=== PATIENT | male | born 1990 | race Caucasian/White ===

== ENCOUNTER 2020-03-28 00:11 | Emergency (ER) | payer MEDICAID, SELFPAY ==
[2020-03-28 00:11] VITALS: BP 111/68; PULSE 152; RESP 18; TEMP 36.6; O2SAT 96; BMI 34.0
[2020-03-28] MEDS: 0.9% Normal Saline 1,000 ML 999 ML IV (00:12)
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
--- NOTE | 2020-03-28 00:17 | ED.RN ---
PATIENT YELLING AND SCREAMING, MAKING SUICIDAL COMMENTS, STATING THAT HE IS GOD AND EVERYTHING IS GOING TO BURN PATIENT IS THRASHING AND UNABLE TO MAINTAIN SAFETY. DECISION TO INTUBATE MADE.
--- NOTE | 2020-03-28 00:19 | ED.RN ---
[facility] AT BEDS[facility]
[2020-03-28 00:22] LABS: Absolute Lymphocyte Count 2.72 X10^3/uL (0.83-4.51); Basophil# 0.17 X10^3/uL; Basophil% 0.5 % (0-1); Eosinophils% 0.3 % (0-5); Hematocrit 45.5 % (40-54); Hemoglobin 15.9 g/dL (13.0-16.5); Lymphocyte # 2.72 X10^3/ul (4.0); Lymphocyte % 8.3 % (19-41); Mean Corp Hgb Conc 34.9 g/dL (32-36); Mean Corpuscular Hgb 31.5 pg (27.0-32.0); Mean Corpuscular Volume 90.3 fL (80-94); Mean Platelet Vol. 8.9 fl (6.2-12.0); Monocyte# 1.71 X10^3/uL; Monocyte% 5.2 % (0-10); NRBC Flagged by Analyzer 0 % (0-5); Neutrophil # 27.04 X10^3/uL (2.7-7.7); POSITIVE COUNT YES; POSITIVE DIFFERENTIAL YES; Platelet Count 435 K/mm3 (150-450); RBC Distribution Width CV 11.9 % (11.6-14.6); RBC Distribution Width SD 38.7 fl (35.1-43.9); Red Blood Count 5.04 M/mm3 (4.6-6.2)
[2020-03-28] MEDS: Etomidate 20 MG/10 ML Vial IV (00:24)
[2020-03-28] MEDS: Rocuronium Bromide 50 MG/5 ML Vial 40 MG IV (00:25)
[2020-03-28 00:29] VITALS: BP 105/76; PULSE 147; RESP 16; O2SAT 100
[2020-03-28 00:31] LABS: Mucous, Urine 0 SEEN /hpf (<or=2+); Squamous Epithelial Cells - UA 0 SEEN /hpf (0-5)
[2020-03-28 00:33] LABS: Differential Indicated SCAN CRITERIA MET
[2020-03-28 00:34] LABS: Color, Urine Yellow (Yellow); Glucose, Dipstick Normal (Normal); Ketone-Dipstick 5 mg/dl (Negative); Leukocyte Esterase-Dipstick 25 /ul (Negative); Nitrite-Dipstick Negative (Negative); Occult Blood-Urine 250 /ul (Negative); Protein-Dipstick 30 mg/dl (Negative); Urine Bilirubin Dipstick Negative (Negative); Urine Clarity Sl. Cloudy (Clear); Urine Urobilinogen 1 mg/dl (Normal)
[2020-03-28 00:35] LABS: International Normalized Ratio 1.1; Prothrombin Time (Protime)PT. 13.9 SECONDS (11.7-14.9)
[2020-03-28 00:39] VITALS: BP 159/87; PULSE 142; RESP 14; O2SAT 100
[2020-03-28 00:40] LABS: AST(SGOT) 67 U/L (15-37); Alanine Aminotransfer ALT/SGPT 52 U/L (16-61); Albumin, Serum 4.1 g/dL (3.2-5.0); Alkaline Phosphatase 141 U/L (45-117); Anion Gap 8 (5-15); BUN 11 mg/dL (7-18); BUN/Creat Ratio 7.3 RATIO (10-20); Bilirubin, Direct 0.15 mg/dL (0.00-0.30); Calcium,Total 9.3 mg/dL (8.5-10.1); Chloride 105 mmol/L (98-107); Creatinine, Serum 1.51 mg/dL (0.70-1.30); EST Glomerular Filtration Rate 58 mL/min (>60); Est Glom Filt Rate - Afr Amer 70 mL/min (>60); Estimated Creatinine Clearance 78.51 ml/min; Glucose 134 mg/dL (74-106); Potassium 3.6 mmol/L (3.5-5.1); Protein, Total 8.1 g/dL (6.4-8.2); Sodium Level 138 mmol/L (136-145)
[2020-03-28 00:41] LABS: Red Blood Cells-Urine 50-100 SEEN /hpf (0-5)
--- NOTE | 2020-03-28 00:42 | ED.RN ---
YUMIKO ANDERS WITH [facility] GIVEN REPORT, DENIES QUESTIONS.
[2020-03-28 00:43] LABS: White Blood Cells 5-10 SEEN /hpf (0-5)
[2020-03-28 00:48] LABS: Hyaline Cast 0-5 SEEN /lpf (0-5); Transitional Epithelial - Ur 0-5 SEEN /hpf (0-5)
[2020-03-28 00:49] LABS: Bacteria 2+ /hpf (None Seen)
[2020-03-28 00:50] LABS: Differential Comment SCANNED
[2020-03-28 00:57] LABS: Amphetamine Urine VISTA POSITIVE (<1000 ng/mL); Barbiturate Urine VISTA NEGATIVE (< 200 ng/mL); Benzodiazepine Urine VISTA NEGATIVE (< 200 ng/mL); Cocaine Urine VISTA NEGATIVE (< 300 ng/mL); Ecstacy Urine VISTA POSITIVE (< 500 ng/mL); Methadone Urine VISTA NEGATIVE (< 300 ng/mL); PCP Urine VISTA NEGATIVE (< 25 ng/mL); THC Urine VISTA POSITIVE (< 50 ng/mL); Vista UDS pH Range 5
[2020-03-28 12:18] LABS: Pathologist Review Reviewed
[2020-03-28 20:15] LABS: Bedside Glucose 124 mg/dL (70-110)
== END 2020-03-28 00:52 | disposition short-term general hospital (02) ==
PROVIDERS: Emergency Provider Student in an Organized Health Care Education/Training Program
DX: S81.012A Laceration without foreign body, left knee, initial encounter (principal); T14.91XA Suicide attempt, initial encounter; F15.10 Other stimulant abuse, uncomplicated; F12.10 Cannabis abuse, uncomplicated; D72.829 Elevated white blood cell count, unspecified; V47.7XXA Person on outside of car injured in collision with fixed or stationary object in traffic accident, initial encounter; X83.8XXA Intentional self-harm by other specified means, initial encounter; Y93.89 Activity, other specified; Y92.410 Unspecified street and highway as the place of occurrence of the external cause; Y99.9 Unspecified external cause status; Z87.891 Personal history of nicotine dependence
CPT/HCPCS: 31500; 51702; 80048; 80076; 80307; 80320; 81001; 82962; 85025; 85610; 99251; 99285; J7030; A4216; G0463; G0480

== ENCOUNTER 2020-06-12 08:53 | Emergency (ER) | payer MEDICAID, SELFPAY ==
[2020-05-07 05:42] VITALS: BMI 29.9
[2020-06-12] VITALS (8 sets, daily range): BP systolic 112–153; BP diastolic 71–86; PULSE 68–118; RESP 16–20; TEMP 36.1–36.4; O2SAT 97–100; BMI 28.2
--- NOTE | 2020-06-12 09:13 | EKG12_ITS ---
Test Reason : MENTAL HEALTH Blood Pressure : / mmHG Vent. Rate : 136 BPM Atrial Rate : 136 BPM P-R Int : 116 ms QRS Dur : 074 ms QT Int : 296 ms P-R-T Axes : 056 005 055 degrees QTc Int : 445 ms Sinus tachycardia Otherwise normal ECG Confirmed by DONNA PIERCE, HUE ([id number]), editorial assistant EMELI ANGEL ([id number]) on 06/15/2020 8:53:23 A M Referred By: JASIEL Confirmed By:RAFAELA THOMPSON MD
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
[2020-06-12 09:46] LABS: Absolute Lymphocyte Count 1.99 X10^3/uL (0.83-4.51); Absolute Neutrophil Count 7.6 X10^3/uL (2.0-7.7); Basophil# 0.03 X10^3/uL; Basophil% 0.3 % (0-1); Eosinophil# 0.13 X10^3/uL; Eosinophils% 1.2 % (0-5); Hemoglobin 14.4 g/dL (13.0-16.5); Lymphocyte # 1.99 X10^3/ul (4.0); Lymphocyte % 18.8 % (19-41); Mean Corp Hgb Conc 32.7 g/dL (32-36); Mean Corpuscular Hgb 29.7 pg (27.0-32.0); Mean Corpuscular Volume 90.7 fL (80-94); Mean Platelet Vol. 8.6 fl (6.2-12.0); Monocyte# 0.78 X10^3/uL; Monocyte% 7.4 % (0-10); NRBC Flagged by Analyzer 0 % (0-5); Neutrophil # 7.64 X10^3/uL (2.7-7.7); Neutrophil % 71.9 % (47-70); Platelet Count 389 K/mm3 (150-450); RBC Distribution Width SD 46.7 fl (35.1-43.9); Red Blood Count 4.85 M/mm3 (4.6-6.2); White Blood Count 10.6 K/mm3 (4.4-11.0)
[2020-06-12 10:09] LABS: AST(SGOT) 8 U/L (15-37); Alanine Aminotransfer ALT/SGPT 19 U/L (16-61); Alkaline Phosphatase 199 U/L (45-117); Anion Gap 5 (5-15); BUN 18 mg/dL (7-18); BUN/Creat Ratio 14.4 RATIO (10-20); Calcium,Total 8.9 mg/dL (8.5-10.1); Chloride 109 mmol/L (98-107); Creatinine, Serum 1.25 mg/dL (0.70-1.30); EST Glomerular Filtration Rate 72 mL/min (>60); Est Glom Filt Rate - Afr Amer 87 mL/min (>60); Estimated Creatinine Clearance 97.66 ml/min; Globulin 3.9 g/dL (2.2-4.2); Glucose 78 mg/dL (74-106); Potassium 3.3 mmol/L (3.5-5.1); Protein, Total 7.9 g/dL (6.4-8.2); Sodium Level 141 mmol/L (136-145); Thyroid Stim Hormone (TSH) 0.41 uIU/mL (0.358-3.74)
[2020-06-12 10:17] LABS: Alcohol, Blood (Medical)-Serum < 3.0 mg/dL
--- NOTE | 2020-06-12 11:18 | ED.RN ---
This RN again asked pt for urine specimen and pt states he will need something more to drink. 2 cups of water provided but pt not willing to drink at this time. States just leave it'.
--- NOTE | 2020-06-12 11:32 | ED.RN ---
HRO asked to assist with pt as pt refusing to attempt urine sample. HRO talking with pt currently
[2020-06-12 13:09] LABS: Amphetamine Urine VISTA POSITIVE (<1000 ng/mL); Barbiturate Urine VISTA NEGATIVE (< 200 ng/mL); Benzodiazepine Urine VISTA NEGATIVE (< 200 ng/mL); Cocaine Urine VISTA NEGATIVE (< 300 ng/mL); Ecstacy Urine VISTA POSITIVE (< 500 ng/mL); Methadone Urine VISTA NEGATIVE (< 300 ng/mL); PCP Urine VISTA NEGATIVE (< 25 ng/mL); THC Urine VISTA POSITIVE (< 50 ng/mL); Vista UDS pH Range 5
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
[2020-06-12] MEDS: Ziprasidone IM 20 MG/ML VIAL IM (14:02)
[2020-06-12 14:32] LABS: Bilirubin, Direct 0.13 mg/dL (0.00-0.30)
[2020-06-12 14:34] LABS: CPK Total, Creatine Kinase 95 U/L (39-308)
--- NOTE | 2020-06-12 15:24 | CM.ED ---
SOCIAL WORK Referral called and faxed to [facility]. Pending review at this time Jamar Salas, FANCY SEWER, HELMET BINDER
--- NOTE | 2020-06-12 15:54 | CM.ED ---
SOCIAL WORK Call from [facility]. Patient accepted by Dr. Wong to the Dual Diagnosis Unit. Patient out of restraints at 1530. Patient unable to leave ER until out of restraints for 4 hours-1930. Signal Person to set up transport once patient out of restraints for 4 hours. Nurse to call report to option 1. D. RODOLFO Salas, MASTER AUTOMOTIVE TECHNICIAN
--- NOTE | 2020-06-12 19:32 | CM.ED ---
Addendum entered by Ronit Salas 06/12/20 19:41: Patient's mother updated on discharge to [facility]. Original Note: SOCIAL WORK Call to [facility] to update patient has not required restraints. [place] has set up transport. Nurse to call report. Jamar Salas, CROP CONSULTANT, SHIP'S OFFICER
== END 2020-06-12 20:10 | disposition short-term general hospital (02) ==
PROVIDERS: Emergency Provider Emergency Medicine
DX: F29 Unspecified psychosis not due to a substance or known physiological condition (principal); F19.10 Other psychoactive substance abuse, uncomplicated; F17.200 Nicotine dependence, unspecified, uncomplicated
CPT/HCPCS: 80053; 80307; 80320; 82248; 82550; 84443; 85025; 87426; 93005; 99284; P9612; G0480; J3486

== ENCOUNTER → 2020-07-18 10:27 | Outpatient (CLI) | payer MEDICAID, SELFPAY ==
[2020-06-12 08:55] VITALS: BMI 28.2
--- NOTE | 2020-07-18 10:38 | MRI_ITS ---
STUDY: MRI BRAIN WITHOUT CONTRAST REASON FOR EXAM: Male, 29 years old. Traumatic brain injury, headaches, memory loss TECHNIQUE: Standardized multiplanar fat and water weighted pulse sequences were obtained. COMPARISON: CT head without contrast 04/21/2016. FINDINGS: No diffusion restriction throughout the brain parenchyma. No focal signal abnormalities throughout the brain parenchyma in all of the pulse sequences. The gradient echo sequence did not show any abnormal magnetic susceptibility foci throughout the brain parenchyma. Normal size of the ventricles and extra-axial spaces for the patient''s age. Normal white matter tracts of the supratentorial brain. Normal bilateral basal ganglia. Normal thalami. There is no extra-axial fluid accumulation. Normal flow voids within the major intracranial circulation suggesting patency by spin echo criteria. Normal sella turcica, pituitary gland, infundibular stalk, optic chiasm and hypothalamus. Normal tectal plate and pineal gland. Normal midbrain, aydee and medulla. Normal cerebellum. Normal basal cisterns. Normal bilateral temporal bones. Normal bilateral internal auditory canals. No demonstrated orbital abnormality, within the constraints of a routine brain study. Normal visualized paranasal sinuses. Normal calvarium and skull base. Normal visualized soft tissue structures. Normal visualized upper cervical spine. MRI/Brain without Contrast IMPRESSION: Normal unenhanced MRI of the brain. Electronically Signed: Rasta Amador MD at 15:29 EST , Service support ,
== END ==
PROVIDERS: PCP Nurse Practitioner Family; Referring Provider Psychiatry & Neurology Neurology; Visit Provider Psychiatry & Neurology Neurology
DX: R41.3 Other amnesia (principal); S09.90XA Unspecified injury of head, initial encounter
CPT/HCPCS: 70551

== ENCOUNTER → 2020-09-17 13:30 | Outpatient (CLI) | payer MEDICAID, SELFPAY ==
[2020-06-12 08:55] VITALS: BMI 28.2
[2020-09-17 15:26] LABS: Absolute Lymphocyte Count 2.48 X10^3/uL (0.83-4.51); Absolute Neutrophil Count 3.5 X10^3/uL (2.0-7.7); Basophil# 0.02 X10^3/uL; Basophil% 0.3 % (0-1); Eosinophil# 0.12 X10^3/uL; Eosinophils% 1.8 % (0-5); Hematocrit 44.3 % (40-54); Hemoglobin 14.7 g/dL (13.0-16.5); Lymphocyte # 2.48 X10^3/ul (4.0); Lymphocyte % 37.7 % (19-41); Mean Corp Hgb Conc 33.2 g/dL (32-36); Mean Corpuscular Hgb 30.7 pg (27.0-32.0); Mean Corpuscular Volume 92.5 fL (80-94); Mean Platelet Vol. 8.7 fl (6.2-12.0); Monocyte# 0.37 X10^3/uL; Monocyte% 5.6 % (0-10); NRBC Flagged by Analyzer 0 % (0-5); Neutrophil # 3.54 X10^3/uL (2.7-7.7); Platelet Count 298 K/mm3 (150-450); RBC Distribution Width CV 12.4 % (11.6-14.6); RBC Distribution Width SD 42.2 fl (35.1-43.9); Red Blood Count 4.79 M/mm3 (4.6-6.2); White Blood Count 6.6 K/mm3 (4.4-11.0)
[2020-09-17 15:28] LABS: Vitamin B12 637 pg/mL (211-911)
[2020-09-17 15:40] LABS: ALB/GLOB Ratio 1.1 RATIO (0.9-2.4); AST(SGOT) 15 U/L (15-37); Alanine Aminotransfer ALT/SGPT 27 U/L (16-61); Albumin, Serum 3.8 g/dL (3.2-5.0); Alkaline Phosphatase 116 U/L (45-117); Anion Gap 6 (5-15); BUN 16 mg/dL (7-18); BUN/Creat Ratio 16.9 RATIO (10-20); Calcium,Total 8.7 mg/dL (8.5-10.1); Chloride 103 mmol/L (98-107); Cholesterol 153 mg/dL (200); Creatinine, Serum 0.95 mg/dL (0.70-1.30); EST Glomerular Filtration Rate 99 mL/min (>60); Est Glom Filt Rate - Afr Amer 119 mL/min (>60); Globulin 3.5 g/dL (2.2-4.2); Glucose 107 mg/dL (74-106); High Density Lipoprotein 52 mg/dL; Potassium 3.3 mmol/L (3.5-5.1); Protein, Total 7.3 g/dL (6.4-8.2); Sodium Level 137 mmol/L (136-145); Thyroid Stim Hormone (TSH) 0.94 uIU/mL (0.358-3.74); Triglycerides 75 mg/dL; Very Low Density Lipoprotein 15 mg/dL (5-40)
== END ==
PROVIDERS: PCP Family Medicine; Referring Provider Family Medicine; Visit Provider Family Medicine
DX: R41.3 Other amnesia (principal); E66.9 Obesity, unspecified
CPT/HCPCS: 36415; 80053; 80061; 82607; 84443; 85025

== ENCOUNTER 2023-11-10 21:06 | Emergency (ER) | payer MEDICARE, SELFPAY ==
[2023-11-10 21:07] VITALS: BP 143/96; PULSE 132; RESP 18; TEMP 36.9; O2SAT 98; BMI 35.6
--- NOTE | 2023-11-10 22:02 | EDS_ITS ---
HPI HPI - Psych History of Present Illness Chief Complaint: Mental Health Informant: patient Onset/Context/Timing Onset: Weeks (2) Context: Gradual Onset Timing: Continuous Worsened by: - (Nothing) Relieved by: Nothing Associated Symptoms Associated Symptoms - Psych: Positive for Depressed, Suicidal Thoughts, Paranoia, Visual Hallucinations and Auditory Hallucinations Specific plan (suicidal thought): Patient denies any specific plan. Narrative Narrative: Patient presents with depression that has been getting worse over the past 2 weeks. Patient states he has had thoughts of suicide but denies any specific plan. Patient states that he does not feel anything can make him happy anymore. Patient also admits to some visual and auditory hallucinations. Patient states the voices are criticizing everything he does. Patient states his visual hallucinations is just bizarre stuff. Patient denies seeing other people. Patient also admits to some paranoid ideations where he thinks people are out to get him. [facility] Medical History Alcohol abuse Allergies Bone fracture Carpal tunnel syndrome Drug abuse Emotional problems Foreign body in right ear GERD (gastroesophageal reflux disease) Headache Hearing problem Leg fracture Right otitis externa Right otitis media Smoker Viral myocarditis Home Medications NK 11/09/23 [History Last Taken Unknown] trazodone 50 mg tablet 50 mg PO QHS #30 tabs 11/09/23 [Rx Last Taken Unknown] Allergy/AdvReac Type Severity Reaction Status Date / Time No Known Allergies Allergy Verified 11/10/23 21:11 Family History (Updated 10/28/23 @ 17:28 by Shellie Dixon) Other CVA (cerebral vascular accident) Dementia Heart disease Surgical History H/O shoulder surgery Hx of pelvic surgery Social History Smoking Status: Heavy Smoker (>10/day) alcohol intake: never substance use type: former substance user and marijuana what type of physical activity do you participate in: walking ROS ROS ED Constitutional Constitutional ED: Denies chills or fever(s) Eyes Eyes: Denies blurry vision or change in vision ENT ENT ED: Denies rhinorrhea or sore throat Cardiovascular Cardiovascular: Denies chest pain or palpitations Respiratory/Chest Respiratory/Chest: Denies cough or dyspnea Gastrointestinal Gastrointestinal: Denies nausea or vomiting Genitourinary Genitourinary ED: Denies dysuria or hematuria Musculoskeletal Musculoskeletal: Reports back pain; Denies neck pain Integumentary Denies abscess or rash Neurologic Neurologic: Reports headache(s); Denies weakness Psychiatric Psychiatric: Reports depression, suicidal ideation and suicidal thoughts Allergic/Immunologic Allergic/Immunologic ED: Denies mouth swelling or urticaria EXAM Physical Exam Const Vital Signs: 11/10/23 21:07 Temperature 98.4 F Temperature Source Temporal Pulse Rate 132 H Respiratory Rate 18 Blood Pressure 143/96 H Blood Pressure Mean 111 Pulse Ox 98 Oxygen Delivery Method Room Air Positive well nourished, well developed and obese General Appearance ED: well developed and NAD Nutritional Appearance: obese HEENT Reports moist mucous membranes normocephalic and atraumatic Neck supple and no JVD Resp normal respiratory effort and clear to auscultation bilaterally Cardio Rate: regular rate Rhythm: regular rhythm GI non-tender and non-distended Palpation: soft Extremity normal to inspection Neuro oriented x3, CN's II-XII intact bilaterally and no sensory deficits noted Esme Coma Scale: document GCS findings Spontaneous Obeys Commands Oriented 15 Sensorium / Orientation: alert Motor Exam: strength 5/5 throughout Psych Appearance: grossly normal Attitude: calm Speech: normal speech Mood & Affect: depressed, sad and flat affect Thought Content: suicidality, No homicidality and hallucination(s) Positive for auditory and visual MDM MDM MDM Narrative Medical decision making narrative: Medical screening labs will be obtained. CBC will be obtained to assess for leukocytosis and anemia. Basic metabolic profile will be obtained to assess for electrolyte abnormality and renal function. Serum alcohol level will be obtained to assess for alcohol intoxication. Urine tox screen will be obtained to assess for substance abuse. Suicide precautions will be maintained. Care of the patient be turned over the oncoming physician pending medical clearance labs and crisis evaluation. Discharge Plan Triage Chief Complaint: Mental Health ED Provider: Anthony Yeh Dx/Rx/DC Orders Prescriptions: No Action NK trazodone 50 mg tablet 50 mg PO QHS Qty: 30 1RF Primary Care Provider: Care Physician,No Primary Referrals: Gerald Chambers MD [Non-Staff] -
[2023-11-10 22:39] LABS: Absolute Lymphocyte Count 3.68 X10^3/uL (0.83-4.51); Basophil# 0.05 X10^3/uL; Basophil% 0.4 % (0-1); Eosinophil# 0.29 X10^3/uL; Eosinophils% 2.2 % (0-5); Hematocrit 39.7 % (40-54); Hemoglobin 13.5 g/dL (13.0-16.5); Lymphocyte # 3.68 X10^3/ul (0.83-4.51); Lymphocyte % 27.9 % (19-41); Mean Corpuscular Hgb 30.3 pg (27.0-32.0); Mean Platelet Vol. 8.5 fl (6.2-12.0); Monocyte# 1.08 X10^3/uL; Monocyte% 8.2 % (0-10); NRBC Flagged by Analyzer 0 % (0-5); Neutrophil # 8.02 X10^3/uL (2.7-7.7); Neutrophil % 60.8 % (47-70); Platelet Count 363 K/mm3 (150-450); RBC Distribution Width CV 13.1 % (11.6-14.6); Red Blood Count 4.46 M/mm3 (4.6-6.2); White Blood Count 13.2 K/mm3 (4.4-11.0)
[2023-11-10 22:55] LABS: Anion Gap 5 (5-15); BUN 13 mg/dL (7-18); BUN/Creat Ratio 13.9 RATIO (10-20); Calcium,Total 8.4 mg/dL (8.5-10.1); Chloride 109 mmol/L (98-107); Creatinine, Serum 0.93 mg/dL (0.70-1.30); EST Glomerular Filtration Rate 99 mL/min (>60); Est Glom Filt Rate - Afr Amer 119 mL/min (>60); Estimated Creatinine Clearance 145.05 ml/min; Glucose 130 mg/dL (74-106); Potassium 3.9 mmol/L (3.5-5.1); Sodium Level 139 mmol/L (136-145)
[2023-11-11 00:36] VITALS: BP 124/80; PULSE 82; RESP 16; O2SAT 98
[2023-11-11 01:15] LABS: Amphetamine Urine VISTA POSITIVE (<1000 ng/mL); Barbiturate Urine VISTA NEGATIVE (< 200 ng/mL); Benzodiazepine Urine VISTA NEGATIVE (< 200 ng/mL); Cocaine Urine VISTA NEGATIVE (< 300 ng/mL); Ecstacy Urine VISTA NEGATIVE (< 500 ng/mL); Methadone Urine VISTA NEGATIVE (< 300 ng/mL); PCP Urine VISTA NEGATIVE (< 25 ng/mL); THC Urine VISTA POSITIVE (< 50 ng/mL); Vista UDS pH Range 5
[2023-11-11 02:25] VITALS: BP 135/87; PULSE 84; RESP 16; TEMP 35.7; O2SAT 97
== END 2023-11-11 02:27 | disposition home or self-care (01) ==
PROVIDERS: Emergency Provider Emergency Medicine; Visit Provider Emergency Medicine
DX: F32.A Depression, unspecified (principal); R45.851 Suicidal ideations; F17.200 Nicotine dependence, unspecified, uncomplicated
CPT/HCPCS: 80048; 80307; 80320; 85025; 99284; G0480

== ENCOUNTER 2024-01-14 03:07 | Emergency (ER) | payer MEDICARE, MEDICAID, SELFPAY ==
[2024-01-14 03:07] VITALS: BP 155/92; PULSE 99; RESP 18; TEMP 36.9; O2SAT 100
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
== END 2024-01-14 06:28 | disposition home or self-care (01) ==
PROVIDERS: Emergency Provider Emergency Medicine; PCP Family Medicine; Visit Provider Emergency Medicine
DX: F41.9 Anxiety disorder, unspecified (principal); F31.9 Bipolar disorder, unspecified; F17.200 Nicotine dependence, unspecified, uncomplicated; Z79.899 Other long term (current) drug therapy
CPT/HCPCS: 99282

== ENCOUNTER 2024-02-03 13:06 | Emergency (ER) | payer MEDICARE, MEDICAID, SELFPAY ==
[2024-02-03 13:07] VITALS: BP 136/101; PULSE 98; RESP 17; TEMP 36.4; O2SAT 99; BMI 31.6
--- NOTE | 2024-02-03 13:20 | EX.ED.DYSGE1 ---
HPI History of Present Illness Chief Complaint: General Illness Narrative Narrative: 33-year-old male past medical history of depression and anxiety, states he was recently incarcerated and released. He does have an appointment with his psychiatrist until 18 February, approximately 16 days from now. He presents for refill of his Vistaril. Of note, he was seen earlier in the month, and given prescription refills for his trazodone for a month and for 20 Vistaril tablets. While he states that he has a few more left, he does not want to be without any as he has 2 more weeks left. He only wants a prescription for Vistaril. He denies any suicidal ideation, homicidal ideation, or hallucinations. He has not necessarily needed the Vistaril more frequently over the last few days. PFSH PFSH Medical History Leg fracture Viral myocarditis GERD (gastroesophageal reflux disease) Hearing problem Headache Emotional problems Drug abuse Carpal tunnel syndrome Bone fracture Allergies Alcohol abuse Right otitis media Right otitis externa Foreign body in right ear Smoker Home Medications ?Medication ?Instructions ?Recorded ?Last Taken ?Type hydroxyzine pamoate 25 mg capsule 25 mg PO TID PRN anxiety #20 caps 01/14/24 Unknown Rx (Vistaril) trazodone 50 mg tablet 50 mg PO QHS #30 tabs 01/14/24 Unknown Rx hydroxyzine pamoate 25 mg capsule 25 mg PO TID PRN anxiety #20 caps 02/03/24 Unknown Rx (Vistaril) Allergy/AdvReac Type Severity Reaction Status Date / Time No Known Allergies Allergy Verified 02/03/24 13:07 Family History Other CVA (cerebral vascular accident) Dementia Heart disease Surgical History H/O shoulder surgery Hx of pelvic surgery Social History Smoking Status: Heavy Smoker (>10/day) alcohol intake: never substance use type: former substance user and marijuana what type of physical activity do you participate in: walking ROS ROS ED ROS Narrative Constitutional: No fever, no chills. HEENT: No sore throat. No neck pain. No loss of vision. No rhinorrhea. Cardiovascular: No chest pain. No palpitations. No pedal edema. Respiratory: No cough, no shortness of breath. Abdominal: No abdominal pain. No nausea. No vomiting. Genitourinary: No dysuria. No hematuria. Musculoskeletal: No myalgias. No arthralgias. Neurologic: No headaches. No dizziness. No lightheadedness. Skin: No rash. No change in color. Psychiatric: No depression. Positive anxiety. No suicidal ideation, homicidal ideation, or hallucinations. EXAM Physical Exam Narrative Exam Narrative: Afebrile. Vital signs noted. Regular rate and rhythm. Lungs clear to auscultation bilaterally. Abdomen soft and nontender with normal active bowel sounds. Neurological examination nonfocal and nonlateralizing. Psychiatric examination reveals no suicidal ideation, no anxiety currently, no homicidal ideation or active/internal stimulation. Const Vital Signs: 02/03/24 13:07 Temperature 97.6 F L Temperature Source Temporal Pulse Rate 98 Respiratory Rate 17 Blood Pressure 136/101 H Blood Pressure Mean 112 Pulse Ox 99 Oxygen Delivery Method Room Air MDM MDM MDM Narrative Medical decision making narrative: I reviewed the patient's prior ED visit. He had been given 30 trazodone tablets and 20 Vistaril tablets. He was told that he should get further refills of his medications through his psychiatrist or primary care provider. He was also told that his trazodone would not be refilled at this time and acknowledges an understanding. He was given a prescription for 25 mg tablets of Vistaril No. 20 to take as needed. I feel he can be discharged safely home with follow-up and that he does not require 72-hour hold or screening laboratories. Disposition is discharged home in stable condition. Differential Diagnosis Differential Diagnosis: Not applicable as he is here for medication refill. Discharge Plan Triage Chief Complaint: General Illness ED Provider: Rasta Armenta Dx/Rx/DC Orders Clinical Impression: Medication refill, Anxiety Instructions: ED Anxiety Reaction Prescriptions: New hydroxyzine pamoate [Vistaril] 25 mg capsule 25 mg PO TID PRN (Reason: anxiety) Qty: 20 0RF No Action hydroxyzine pamoate [Vistaril] 25 mg capsule 25 mg PO TID PRN (Reason: anxiety ) Qty: 20 0RF trazodone 50 mg tablet 50 mg PO QHS Qty: 30 1RF Primary Care Provider: Kendra Jameson Referrals: Kendra Jameson, DO [Primary Care Provider] - As soon as possible Activity Restrictions/Additional Instructions: You will need to start getting your refills of medication from your primary care provider or your psychiatrist. Print Language: Gibralt[place] Disposition Disposition: Home, Self Care
== END 2024-02-03 13:25 | disposition home or self-care (01) ==
LOC: ED 13:24
PROVIDERS: Emergency Provider Emergency Medicine; PCP Family Medicine; Visit Provider Emergency Medicine
DX: Z76.0 Encounter for issue of repeat prescription (principal); F41.9 Anxiety disorder, unspecified; F17.200 Nicotine dependence, unspecified, uncomplicated
CPT/HCPCS: 99283